=== PATIENT | male | born 1955 | race Caucasian/White ===

== ENCOUNTER 2020-04-30 23:21 | Inpatient (IN) | payer MEDICARE, OTHER ==
[~2020-04-30] VITALS: Ht 182.9 cm; Wt 61.2 kg
[2020-05-01] MEDS ORDERED: MAGNESIUM HYDROXIDE 30 ML UDC PO PRN
[2020-05-01] MEDS ORDERED: MAG HYDROX/AL HYDROX/SIMETH 30 ML UDC PO PRN
[2020-05-01] MEDS ORDERED: ACETAMINOPHEN 325 MG TABLET PO PRN
[2020-05-01] MEDS ORDERED: BLOOD SUGAR DIAGNOSTIC 1 EACH STRIP IN ONE
[2020-05-01] MEDS ORDERED: LORAZEPAM 0.5 MG TABLET PO PRN (00:30)
[2020-05-01] MEDS ORDERED: TEMAZEPAM 7.5 MG CAPSULE PO PRN (00:30)
--- NOTE | 2020-05-01 01:23 | NUR ---
GPS RN ADMITTING NOTE: ADMITTED A 65 Y/O MALE ON 04/30/2020 @ 2330. PT IS A DIRECT ADMIT FROM [facility] ORIGINALLY FROM HOME. PT ARRIVED UNIT ON A STRETCHER ACCOMPANIED BY 2 EMT STAFF. PT IS ON A 5150 HOLD FOR GRAVELY DISABLED. PT WAS PLACED ON HOLD ON 04/30/2020 @ 1400, HOLD WILL ON 05/03/2020 @ 1400. PER HOLD, PT WAS TAKEN TO [facility] BY HIS SON, REPORTING PATIENT HAS BEEN DEPRESSED, CATATONIC, AND NOT EATING NOR GROOMING HIMSELF. PT ALSO ADMITTED TO MD HE HAS NOT BEEN EATING OR GROOMING HIMSELF AND IS LOSING WEIGHT. UPON FACE TO FACE EVALUATION, PT PRESENTS A/O X3, COOPERATIVE, CALM, OBEYS COMMAND. PT SKIN ASSESSMENT DONE AND PICTURES TAKEN AND PLACED IN PATIENT CHART. ACCU CHEK DONE/BS 86MG/DL. MRSA DONE. PT BELONGINGS INVENTORIED AND CONTRABAND PLACED IN SAFE. PT UNABLE TO SIGN ADMISSION PAPERS. PT DENIES SI AT THIS TIME. PT MEDICAL HX IS COPD AND GLAUCOMA. PT WILL BE UNDER THE MEDICAL CARE OF SAM AND PSYCHIATRIC CARE OF DR DOMINGO. BOTH DOCTORS HAVE BEEN INFORMED OF PT ADMISSION. PT ADVISED OF HIS HOLD. PT ORIENTED TO UNIT, STAFF AND DOCTORS. PTS RIGHTS HANDBOOK AND PRESCRIPTION MEDICATION GUIDE GIVEN TO PT. PT BED IS IN LOCKED, LOWEST POSITION, BED ALARM IS ON. CARE PLAN STARTED, ALL PT CARE NEEDS HAVE BEEN MET AT THIS TIME. PT IS CURRENTLY LAYING ON BED. NO S/S OF DISTRESS. WILL CONTINUE TO MONITOR Q15MIN AND Q1 HR ROUNDS FOR SAFETY MOOD AND BEHAVIOR AND ENDORSE TO AM SHIFT.
[2020-05-01 01:44] VITALS: BP 109/66
[2020-05-01] MEDS ORDERED: FLUC200T PO (02:20)
[2020-05-01] MEDS ORDERED: ALBU18HF2 INH (02:20)
[2020-05-01 06:55] LABS: BILIRUBIN,TOTAL 0.3 mg/dL (0.2-1.0); CREATININE 0.9 mg/dL (0.6-1.3); TOTAL PROTEIN, SERUM 6.6 g/dL (6.4-8.2)
--- NOTE | 2020-05-01 07:00 | NUR ---
GPS RN CLOSING NOTES: PT SLEEPING COMFORTABLY IN BED. NO BEHAVIORAL ISSUES THIS SHIFT. PT SLEPT FOR 6HR THIS SHIFT. NO S/S OF DISTRESS. RESPIRATION EVEN AND UNLABORED WITH EQUAL RISE AND FALL OF THE CHEST ON ROOM AIR. ALL PT CARE NEEDS MET ANTICIPATED. WILL CONTINUE TO MONITOR AND ENDORSE TO AM SHIFT.
[2020-05-01 07:05] LABS: CHOLESTEROL 256 mg/dL (<200); HDL CHOLESTEROL 49 mg/dL (40-60); LDL 150 mg/dL (0-99); TRIGLYCERIDES 242 mg/dL (30-150)
[2020-05-01] MEDS ORDERED: NETA2.5D3 RIGHTEYE (07:43)
[2020-05-01] MEDS ORDERED: BRIN8DRO RIGHTEYE (07:43)
[2020-05-01] MEDS ORDERED: FLUT1BLS IH (07:43)
[2020-05-01 08:00] VITALS: BP 111/69
--- NOTE | 2020-05-01 10:30 | NUR ---
FAMILY CONTACT: SW spoke with pt's brother Poncho Hernandes ([phone]) to inform him of pt's treatment plan and initial discharge plan. SW confirmed pt can return home when stable and cleared for discharge and transportation will be provided by pt's brother Poncho. Poncho stated intent to provide social support and ADL support to ensure pt meets treatment objectives. Per pt treatment plan, SW offered [facility] contact information for pt to follow up post discharge from facility; paperwork left with pt at bedside. SW to remain available and continue to monitor pt's progress.
--- NOTE | 2020-05-01 12:23 | NUR ---
INITIAL DISCHARGE PLAN: Pt currently resides at [address] [place] [address]; [phone]. Pt reports he is uncertain if he can return home due to strained relationship with brother Poncho ([phone]); VENITA spoke with pt's brother Poncho who confirmed pt can return home when cleared for discharge; Poncho confirmed he will stay with pt to ensure pt safety and follow up compliance. Poncho further reported that he can provide transportation for pt to return home when cleared for discharge. Pt reports he is agreeable to initial discharge plan. VENITA will work with MD, pt and family to form a safe discharge plan.
--- NOTE | 2020-05-01 14:20 | NUR ---
GROUP THERAPY: SW encouraged pt to attend group on this day, pt was asleep and not easily roused by verbal cues.
[2020-05-01] MEDS: FLUOXETINE HCL 20 MG CAPSULE PO SCH (14:52)
--- NOTE | 2020-05-01 15:35 | NUR ---
GPS RN NOTE: DR PEREZ NOTIFIED TO RECONCILED HOME MEDICATIONS.
[2020-05-01 16:00] VITALS: BP 149/84
[2020-05-01] MEDS ORDERED: ALBUTEROL FS 2.5 MG/3 ML VIAL.NEB NEB PRN (18:00)
[2020-05-01 20:00] VITALS: BP 99/52
--- NOTE | 2020-05-01 20:58 | NUR ---
GPS RN NOTE NOTICED PTS BP WAS LOW, RECHECKED PTS VITALS, VITALS ARE NOW STABLE, BP: 122/62, O2: 99, HR: 68, RR: 19. WILL CONTINUE TO MONITOR Q15MIN FOR SAFETY AND BEHAVIOR.
[2020-05-01] MEDS ORDERED: OLANZAPINE 2.5 MG TABLET PO SCH (21:00)
[2020-05-01 21:01] VITALS: BP 122/64
[2020-05-01] MEDS: LATANOPROST EYE DROP 0.005% 2.5 ML BOTTLE OP SCH (21:20)
[2020-05-01] MEDS ORDERED: Medication Not On Formulary EA (Netarsudil Mesylat/Latanoprost (Rocklatan 0.02%-0.005% E RIGHTEYE SCH (22:00)
[2020-05-02 08:00] VITALS: BP 112/64
[2020-05-02] MEDS: ENSURE ENLIVE CHOC 237 ML CAN PO SCH ×2 (08:33→17:07)
[2020-05-02] MEDS: FLUTICASONE/VILANTEROL 1 EACH BLST.W.DEV IH SCH (08:34)
[2020-05-02] MEDS: FLUOXETINE HCL 20 MG CAPSULE PO SCH (12:11)
[2020-05-02 16:00] VITALS: BP 129/69
[2020-05-02 19:56] VITALS: BP 116/54
[2020-05-02] MEDS ORDERED: OLANZAPINE 2.5 MG TABLET PO SCH (21:00)
[2020-05-02] MEDS: LATANOPROST EYE DROP 0.005% 2.5 ML BOTTLE OP SCH (21:39)
[2020-05-02] MEDS ORDERED: SIMVASTATIN 10 MG TABLET ONE (22:11)
[2020-05-02] MEDS: SIMVASTATIN 10 MG TABLET PO SCH (22:13)
[2020-05-03 08:00] VITALS: BP 111/63
[2020-05-03] MEDS: ENSURE ENLIVE CHOC 237 ML CAN PO SCH ×2 (08:09→16:53)
[2020-05-03] MEDS: FLUTICASONE/VILANTEROL 1 EACH BLST.W.DEV IH SCH (08:38)
--- NOTE | 2020-05-03 09:00 | NUR ---
RN NOTE- PT QUIET WITHDRAWN IN BED, MINIMAL INTERACTION, MED COMPLIANT PARANOID GUARDED, DENIES ALL.
--- NOTE | 2020-05-03 12:09 | NUR ---
GROUP THERAPY: SW encouraged pt to attend group on this day, pt was asleep in the activity room and not easily roused by verbal cues.
[2020-05-03] MEDS: FLUOXETINE HCL 20 MG CAPSULE PO SCH (12:11)
[2020-05-03] MEDS: Fluoxetine 10 mg capsule PO SCH (13:00)
[2020-05-03] MEDS ORDERED: FLUOXETINE HCL 20 MG CAPSULE PO SCH (13:00)
--- NOTE | 2020-05-03 13:18 | NUR ---
RN NOTE- DR DOMINGO INCREASED PTS PROZAC DOSE FROM 20MG TO 30 MG. ORDER CAME UP FOR PROZAC 30 MG AT 1300 BUT PROZAC 20 MG 1300 DOSE ALREADY GIVEN BY THIS RN. DR DOMINGO ORDERED NEW 30 MG PROZAC DOSE HELD AND A ONE TIME DOSE OF PROZAC 10 MG TO BE GIVEN AT THIS TIME. COMPLIED
[2020-05-03] MEDS ORDERED: Fluoxetine 10 mg capsule PO SCH (13:30)
[2020-05-03 16:07] VITALS: BP 115/64
[2020-05-03 19:37] VITALS: BP 115/74
[2020-05-03 19:44] VITALS: BP 115/74
--- NOTE | 2020-05-03 20:15 | NUR ---
GPS RN NOTE PATIENT TOOK SHOWER TONIGHT.
[2020-05-03] MEDS: OLANZAPINE 2.5 MG TABLET PO SCH (21:10)
[2020-05-03] MEDS: LATANOPROST EYE DROP 0.005% 2.5 ML BOTTLE OP SCH (21:11)
[2020-05-03] MEDS: SIMVASTATIN 10 MG TABLET PO SCH (21:47)
--- NOTE | 2020-05-04 06:57 | NUR ---
GPS RN NOTE PATIENT SLEPT WELL AT NIGHT, QUIET, ISOLATIVE, GUARDED, NO BEHAVIORAL EPISODES NOTED. REDIRECTABLE.
[2020-05-04 08:05] VITALS: BP 116/62
[2020-05-04] MEDS: ENSURE ENLIVE CHOC 237 ML CAN PO SCH ×2 (08:26→16:48)
[2020-05-04] MEDS: FLUTICASONE/VILANTEROL 1 EACH BLST.W.DEV IH SCH (09:50)
[2020-05-04] MEDS: Fluoxetine 10 mg capsule PO SCH (13:47)
[2020-05-04 16:19] VITALS: BP 120/67
--- NOTE | 2020-05-04 16:43 | NUR ---
very isolative,sits by self in rm.
[2020-05-04 20:07] VITALS: BP 129/65
[2020-05-04] MEDS: OLANZAPINE 2.5 MG TABLET PO SCH (21:09)
[2020-05-04] MEDS: SIMVASTATIN 10 MG TABLET PO SCH (21:09)
[2020-05-04] MEDS: LATANOPROST EYE DROP 0.005% 2.5 ML BOTTLE OP SCH (21:09)
--- NOTE | 2020-05-05 07:04 | NUR ---
weight training instructor notes closing notes pt remain in bed resting without any distress noted. he slept well and calmed and cooperative last night till end of the shift. kept him warm and comfortable at all times. will continue Q 15 minutes monitoring for safety and behavior. Endorse to am nurse Lilibeth/rn for continuity of care.
[2020-05-05 08:00] VITALS: BP 119/77
[2020-05-05] MEDS: ENSURE ENLIVE CHOC 237 ML CAN PO SCH ×2 (08:36→16:32)
[2020-05-05] MEDS: FLUTICASONE/VILANTEROL 1 EACH BLST.W.DEV IH SCH (08:37)
--- NOTE | 2020-05-05 09:00 | NUR ---
RN NOTE- PT IN ROOM WITHDRAWN, ISOLATIVE, PARANOID, GUARDED, MONOSYLLABIC RESPONSES, CONFUSED, PO INTAKE GOOD MED COMPLIANT
[2020-05-05] MEDS: Fluoxetine 10 mg capsule PO SCH (12:11)
[2020-05-05 16:00] VITALS: BP 124/65
--- NOTE | 2020-05-05 19:50 | NUR ---
GPS RN OPENING NOTES PATIENT RECEIVED RESTING IN BED COMFORTABLY; A/O2-3, BREATHING EVEN AND UNLABORED; NO SOB NOTED; TOLERATING ROOM AIR; AMBULATORY WITH STEADY GAIT; PATIENT DENIES SI/HI AT THIS TIME; NO DISTRESS NOTED; PATIENT EDUCATED ON USE OF CALL LIGHT; SAFETY PRECAUTIONS IMPLEMENTED; BED LOCKED IN LOW POSITION; SIDE RAILSX2; WILL CONTINUE TO MONITOR [id number] WITH THE HELP OF STAFF TO MAINTAIN SAFETY
[2020-05-05 20:00] VITALS: BP 123/54
[2020-05-05] MEDS ORDERED: SIMVASTATIN 10 MG TABLET ONE (21:36)
[2020-05-05] MEDS: OLANZAPINE 2.5 MG TABLET PO SCH (21:40)
[2020-05-05] MEDS: LATANOPROST EYE DROP 0.005% 2.5 ML BOTTLE OP SCH (21:40)
[2020-05-05] MEDS: SIMVASTATIN 10 MG TABLET PO SCH (21:40)
[2020-05-06 08:00] VITALS: BP 121/75
[2020-05-06] MEDS: FLUTICASONE/VILANTEROL 1 EACH BLST.W.DEV IH SCH (08:39)
[2020-05-06] MEDS: ENSURE ENLIVE CHOC 237 ML CAN PO SCH ×2 (08:39→17:09)
--- NOTE | 2020-05-06 09:00 | NUR ---
RN NOTE- UNCHANGED TODAY PT IN ROOM WITHDRAWN, ISOLATIVE, PARANOID, GUARDED, MONOSYLLABIC RESPONSES, CONFUSED, PO INTAKE GOOD MED COMPLIANT
[2020-05-06] MEDS: Fluoxetine 10 mg capsule PO SCH (12:09)
[2020-05-06 16:00] VITALS: BP 120/65
--- NOTE | 2020-05-06 16:00 | NUR ---
RN NOTE- PT WALKED TOWARDS DOOR AND TRIED TO EXIT. REDIRECTED. DR DOMINGO AWARE OF HIS CONFUSION AND ORDERED LABS AND UA COLLECTED. COMPLYING
[2020-05-06 17:49] LABS: APPEARANCE,URINE CLEAR (CLEAR); BILIRUBIN,URINE NEGATIVE (NEGATIVE); BLOOD, URINE NEGATIVE Ery/uL (NEGATIVE); COLOR,URINE YELLOW (YELLOW); KETONES,URINE TRACE (NEGATIVE); LEUKOCYTE ESTERASE ,URINE NEGATIVE (NEGATIVE); NITRITE, URINE NEGATIVE (NEGATIVE); PH,URINE 5.5 (5.0-8.0); PROTEIN,URINE NEGATIVE (NEGATIVE); UGLUCOSE NEGATIVE (NEGATIVE); UROBILINOGEN,URINE 0.2 EU/dL (0.2)
[2020-05-06 17:50] LABS: ALBUMIN 3.4 g/dL (3.4-5.0); BILIRUBIN,TOTAL 0.4 mg/dL (0.2-1.0); CREATININE 0.8 mg/dL (0.6-1.3); POTASSIUM 4.2 mmol/L (3.5-5.1); TOTAL PROTEIN, SERUM 7.3 g/dL (6.4-8.2)
[2020-05-06 17:57] LABS: BACTERIA,URINE None seen /HPF (None Seen); RBC,URINE NONE SEEN /HPF (0-2); SQUAMOUS EPITHELIAL CELL,UR None Seen /HPF (None Seen); WBC,URINE 0-2 /HPF (0-3)
[2020-05-06 19:48] VITALS: BP 141/81
[2020-05-06 19:50] VITALS: BP 141/81
[2020-05-06 20:08] VITALS: BP 141/81
[2020-05-06] MEDS: SIMVASTATIN 10 MG TABLET PO SCH (21:08)
[2020-05-06] MEDS: LATANOPROST EYE DROP 0.005% 2.5 ML BOTTLE OP SCH (21:08)
[2020-05-06] MEDS: OLANZAPINE 2.5 MG TABLET PO SCH (21:08)
--- NOTE | 2020-05-06 23:57 | NUR ---
RECEIVED AMBULATING IN HIS ROOM HEAD DOWN AND EYE GLASSES ON. WHEN I ENTERED THE ROOM HE LOOKED AT ME BUT NO ACKNOWLEDGEMENT HAVING A FLAT AFFECT. HE SAID 'NO' TO A SLEEPING PILL. HE TOOK HIS OTHER MEDS W/O PROBLEMS .HE REMAINS SITTING ON THE EDGE OF THE BED AWAKE , BLANKET WAS GIVEN AND WRAPPED AROUND HIS SHOULDERS SOCKS ARE ON HIS FEET FLAT AFFECT CONTINUES
--- NOTE | 2020-05-07 05:50 | NUR ---
ENDING NOTES: AT 02:00 HE CAME OUT TO SIT IN A CHAIR OUTSIDE HIS ROOM.HE WAS DOING WORD FIND PUZZELSS. I WALKED BY HIM AND HE SAYS"HEY HAVE YOU ED TO [place] ?" AND PRCEEDED TO TALK ABOUT THE PEOPLE IN [place], HE SPOKE OF HIS ADVENTURE ON A [employer] BOARD AND THE ADVENTURE IN [place] BUYING A CAR, HE WAS SMILING HE SPOKE. HE LATER IN THE MORNING WANTED TO SHAVE AND GET CLEANED UP. HE WAS PLEASENT AND COOPERATIVE.
[2020-05-07 07:18] LABS: BASOPHILS # (AUTO) 0.1 /CMM (0.0-0.2); BASOPHILS % (AUTO) 0.9 % (0.0-2.0); EOSINOPHILS % (AUTO) 4.1 % (0.0-6.0); HEMATOCRIT 40 % (39-51); HEMOGLOBIN 13.3 g/dL (13.5-17.5); LYMPHOCYTES # (AUTO) 1.4 /CMM (0.8-4.8); LYMPHOCYTES % (AUTO) 21.8 % (20.0-44.0); MEAN CORPUSCULAR HGB CONC 34 g/dl (31.0-36.0); MEAN CORPUSCULAR VOLUME 92 fL (80-96); MONOCYTES # (AUTO) 0.9 /CMM (0.1-1.30); MONOCYTES % (AUTO) 13.3 % (2.0-12.0); NEUTROPHILS # (AUTO) 3.8 /CMM (1.8-8.9); NEUTROPHILS % (AUTO) 59.9 % (43.0-81.0); PLATELET COUNT (AUTO) 282 /CMM (150-450); RED BLOOD CELL COUNT(AUTO) 4.28 MIL/uL (4.5-6.0); WHITE BLOOD COUNT (AUTO) 6.4 K/uL (4.3-11.0)
[2020-05-07 08:00] VITALS: BP 115/74
[2020-05-07] MEDS: FLUTICASONE/VILANTEROL 1 EACH BLST.W.DEV IH SCH (08:50)
[2020-05-07] MEDS: ENSURE ENLIVE CHOC 237 ML CAN PO SCH ×2 (08:50→16:29)
--- NOTE | 2020-05-07 09:00 | NUR ---
RN NOTE- CONFUSED TODAY PT IN ROOM WITHDRAWN, ISOLATIVE, PARANOID, GUARDED, MONOSYLLABIC RESPONSES, CONFUSED, PO INTAKE GOOD MED COMPLIANT
--- NOTE | 2020-05-07 11:05 | NUR ---
Individual Intervention with the pt and the MD: SW met with the pt with the MD at bedside and informed the pt that the recommendation post pts hospital stay is to be discharged to a SNF. Pts affect was flat and pt was not making eye contact but appeared to nod his head in approval of the discharge plan.
--- NOTE | 2020-05-07 11:11 | NUR ---
SNF Referral: VENITA faxed a referral to [facility] with attention to Alison to the fax number: [phone].
--- NOTE | 2020-05-07 11:16 | NUR ---
Family Contact: SW spoke with pt's brother Poncho Hernandes ([phone]) and informed him that the pts MD is recommending the pt to be discharged to a SNF for further stabilization post pts hospital stay. Pts brother stated that he understands and would like to see more improvement from the pt before he can return home. Pts brother agreed to the SNF placement.
[2020-05-07] MEDS: Fluoxetine 10 mg capsule PO SCH (12:16)
[2020-05-07 16:00] VITALS: BP 129/83
[2020-05-07 20:02] VITALS: BP 142/64
[2020-05-07] MEDS: LATANOPROST EYE DROP 0.005% 2.5 ML BOTTLE OP SCH (21:15)
[2020-05-07] MEDS: OLANZAPINE 2.5 MG TABLET PO SCH (21:16)
[2020-05-07] MEDS: SIMVASTATIN 10 MG TABLET PO SCH (21:16)
[2020-05-08 08:00] VITALS: BP 114/70
[2020-05-08] MEDS: ENSURE ENLIVE CHOC 237 ML CAN PO SCH ×2 (09:43→17:23)
[2020-05-08] MEDS: FLUTICASONE/VILANTEROL 1 EACH BLST.W.DEV IH SCH (09:43)
--- NOTE | 2020-05-08 10:13 | NUR ---
GIVEN TYLENOL 650 MG PO FOR HEADACHE.
--- NOTE | 2020-05-08 10:40 | NUR ---
SNF Contact: Meghna ([phone]) from [facility] SN[facility] contacted the SW and stated that the pt was accepted to their facility upon discharge.
--- NOTE | 2020-05-08 10:41 | NUR ---
SNF Contact: Alison ([phone]) from [facility] contacted the SW and stated that the pt was accepted to their facility once the diagnosis includes cognitive impairment.
--- NOTE | 2020-05-08 11:30 | NUR ---
discussed ct results with reyes fierro np and orders given.
[2020-05-08] MEDS: Fluoxetine 10 mg capsule PO SCH (12:53)
--- NOTE | 2020-05-08 13:21 | NUR ---
spoke with furniture inspector and dr. li regarding mri orders.call out to pt's brother dustin.ok'd mri for pt.
[2020-05-08 16:00] VITALS: BP 108/52
--- NOTE | 2020-05-08 16:56 | NUR ---
MRI CHECKLIST COMPLETE.PT. A LITTLE CONFUSED,FORGETFUL.
[2020-05-08 20:00] VITALS: BP 120/54
--- NOTE | 2020-05-08 20:35 | NUR ---
GPS RN NOTE SPOKE TO SALESPERSON BURIAL PLOTS SHITAL @ 2031, REGARDING THE PTS MRI, SHITAL SAID THAT THE MRI WILL BE DONE TOMORROW AND IT WAS NOT NEEDED TO START THE HEPLOCK TODAY. PT WAS ADVISED OF THE CHANGE. WILL PASS IT ON AND CONTINUE TO MONITOR Q15MIN FOR SAFETY AND BEHAVIOR.
[2020-05-08] MEDS: LATANOPROST EYE DROP 0.005% 2.5 ML BOTTLE OP SCH (21:25)
[2020-05-08] MEDS: OLANZAPINE 2.5 MG TABLET PO SCH (21:25)
[2020-05-08] MEDS: MEMANTINE HCL 5 MG TABLET PO SCH (21:25)
[2020-05-08] MEDS: SIMVASTATIN 10 MG TABLET PO SCH (21:29)
--- NOTE | 2020-05-09 06:47 | NUR ---
GPS RN NOTE SPOKE TO RADIOLOGIST RAT BREEDER DARLIN @ 9930, REGARDING PTS MRI SCHEDULED TODAY, DARLIN STATED HE DID NOT RECEIVE THE ORDER PLACED LAST NIGHT AND TO D/C THE ORDER AND CREATE A NEW ONE. DARLIN STATED HE WANTED THE ORDER TO BE AN MRI ORBIT OF HEAD AND NECK, SINUSES W/ AND W/OUT CONTRAST. NEW ORDER WAS PUT IN, WILL PASS IT ON TO DAY SHIFT TO FOLLOW UP WITH DARLIN REGARDING STATUS OF ORDER. CONSENT AND PAPERWORK ARE DONE AND PLACED IN CHART, PT IS AWARE OF THE PROCEDURE. WILL CONTINUE TO MONITOR Q15MIN FOR SAFETY AND BEHAVIOR.
[2020-05-09 08:00] VITALS: BP 126/75
[2020-05-09] MEDS: ENSURE ENLIVE CHOC 237 ML CAN PO SCH ×2 (08:15→16:30)
[2020-05-09] MEDS: MEMANTINE HCL 5 MG TABLET PO SCH ×2 (08:16→21:04)
[2020-05-09] MEDS: FLUTICASONE/VILANTEROL 1 EACH BLST.W.DEV IH SCH (08:16)
[2020-05-09] MEDS: CYANOCOBALAMIN 1,000 MCG/ML VIAL IM SCH (08:56)
--- NOTE | 2020-05-09 09:34 | NUR ---
Hep lock started with gauge #20 on the right arm. Pt. good blood return and pt. tolerated well.
--- NOTE | 2020-05-09 09:45 | NUR ---
Pt. went to MRI with the staff. Left without distress and on stable condition.
[2020-05-09] MEDS: Fluoxetine 10 mg capsule PO SCH (12:13)
--- NOTE | 2020-05-09 15:28 | NUR ---
Rhys COPELAND came in the unit examined the nose of the pt. Addendum: 05/09/20 at 1532 by JANIE RAMIRES RN Per FILM RECORDIST he is aware of the MRI result
[2020-05-09 16:00] VITALS: BP 116/70
[2020-05-09 19:47] VITALS: BP 110/52
[2020-05-09 20:14] VITALS: BP 110/52
[2020-05-09] MEDS: OLANZAPINE 2.5 MG TABLET PO SCH (21:04)
[2020-05-09] MEDS: LATANOPROST EYE DROP 0.005% 2.5 ML BOTTLE OP SCH (21:05)
[2020-05-09] MEDS: SIMVASTATIN 10 MG TABLET PO SCH (21:42)
--- NOTE | 2020-05-10 06:03 | NUR ---
GPS RN NOTE PATIENT SLEPT WELL AT NIGHT. COOPERATIVE, CLAM, QUIET, ISOLATIVE, NO BEHAVIOR CHANGES NOTED. WILL CONTINUE TO MONITOR.
[2020-05-10] MEDS: ENSURE ENLIVE CHOC 237 ML CAN PO SCH ×2 (08:00→16:30)
[2020-05-10 08:04] VITALS: BP 113/75
[2020-05-10] MEDS: FLUTICASONE/VILANTEROL 1 EACH BLST.W.DEV IH SCH (08:44)
[2020-05-10] MEDS: MEMANTINE HCL 5 MG TABLET PO SCH ×2 (08:44→21:21)
[2020-05-10] MEDS: CYANOCOBALAMIN 1,000 MCG/ML VIAL IM SCH (08:45)
[2020-05-10] MEDS: Fluoxetine 10 mg capsule PO SCH (12:39)
[2020-05-10] MEDS ORDERED: Fluoxetine 10 mg capsule PO ONE (13:00)
[2020-05-10] MEDS ORDERED: Fluoxetine 10 mg capsule PO SCH (13:00)
[2020-05-10 13:21] LABS: BASOPHILS # (AUTO) 0.1 /CMM (0.0-0.2); BASOPHILS % (AUTO) 0.9 % (0.0-2.0); EOSINOPHILS % (AUTO) 2.9 % (0.0-6.0); HEMATOCRIT 39 % (39-51); HEMOGLOBIN 13.2 g/dL (13.5-17.5); LYMPHOCYTES # (AUTO) 1.9 /CMM (0.8-4.8); LYMPHOCYTES % (AUTO) 25.4 % (20.0-44.0); MEAN CORPUSCULAR HGB CONC 34 g/dl (31.0-36.0); MEAN CORPUSCULAR VOLUME 93 fL (80-96); MONOCYTES % (AUTO) 13.6 % (2.0-12.0); NEUTROPHILS # (AUTO) 4.3 /CMM (1.8-8.9); NEUTROPHILS % (AUTO) 57.2 % (43.0-81.0); PLATELET COUNT (AUTO) 312 /CMM (150-450); WHITE BLOOD COUNT (AUTO) 7.5 K/uL (4.3-11.0)
[2020-05-10 13:30] LABS: ALBUMIN 2.6 g/dL (3.4-5.0); BILIRUBIN,TOTAL 0.3 mg/dL (0.2-1.0); CALCIUM, SERUM 8.7 mg/dL (8.5-10.1); CREATININE 0.9 mg/dL (0.6-1.3); POTASSIUM 4.1 mmol/L (3.5-5.1); TOTAL PROTEIN, SERUM 6.1 g/dL (6.4-8.2)
[2020-05-10 16:00] VITALS: BP 126/64
[2020-05-10 19:49] VITALS: BP 117/62
[2020-05-10 19:53] VITALS: BP 117/62
--- NOTE | 2020-05-10 20:30 | NUR ---
GPS RN NOTE: URINE SPECIMEN WAS COLLECTED ORDERED & PICKED UP BY GOLD LETTERER.
[2020-05-10 21:08] LABS: APPEARANCE,URINE CLEAR (CLEAR); BILIRUBIN,URINE NEGATIVE (NEGATIVE); BLOOD, URINE NEGATIVE Ery/uL (NEGATIVE); COLOR,URINE YELLOW (YELLOW); KETONES,URINE NEGATIVE (NEGATIVE); LEUKOCYTE ESTERASE ,URINE NEGATIVE (NEGATIVE); NITRITE, URINE NEGATIVE (NEGATIVE); PROTEIN,URINE NEGATIVE (NEGATIVE); UGLUCOSE NEGATIVE (NEGATIVE); UROBILINOGEN,URINE 0.2 EU/dL (0.2)
[2020-05-10] MEDS: LATANOPROST EYE DROP 0.005% 2.5 ML BOTTLE OP SCH (21:21)
[2020-05-10] MEDS: OLANZAPINE 2.5 MG TABLET PO SCH (21:21)
[2020-05-10] MEDS: SIMVASTATIN 10 MG TABLET PO SCH (21:46)
[2020-05-11 08:00] VITALS: BP 111/62
[2020-05-11] MEDS: FLUTICASONE/VILANTEROL 1 EACH BLST.W.DEV IH SCH (08:58)
[2020-05-11] MEDS: ENSURE ENLIVE CHOC 237 ML CAN PO SCH ×2 (08:58→16:34)
[2020-05-11] MEDS: CYANOCOBALAMIN 1,000 MCG/ML VIAL IM SCH (08:58)
[2020-05-11] MEDS: LATANOPROST EYE DROP 0.005% 2.5 ML BOTTLE OP SCH (08:59)
[2020-05-11] MEDS: MEMANTINE HCL 5 MG TABLET PO SCH ×2 (08:59→21:26)
[2020-05-11] MEDS: FLUOXETINE HCL 20 MG CAPSULE PO SCH (12:10)
[2020-05-11 16:00] VITALS: BP 109/51
[2020-05-11 20:50] VITALS: BP 98/54
[2020-05-11] MEDS: SIMVASTATIN 10 MG TABLET PO SCH (21:26)
[2020-05-11] MEDS: OLANZAPINE 2.5 MG TABLET PO SCH (21:26)
[2020-05-12 08:00] VITALS: BP 121/62
[2020-05-12] MEDS: FLUTICASONE/VILANTEROL 1 EACH BLST.W.DEV IH SCH (08:50)
[2020-05-12] MEDS: ENSURE ENLIVE CHOC 237 ML CAN PO SCH ×2 (08:51→17:12)
[2020-05-12] MEDS: CYANOCOBALAMIN 1,000 MCG/ML VIAL IM SCH (09:01)
[2020-05-12] MEDS: MEMANTINE HCL 5 MG TABLET PO SCH ×2 (09:01→21:27)
[2020-05-12] MEDS: FLUOXETINE HCL 20 MG CAPSULE PO SCH (12:24)
[2020-05-12 16:00] VITALS: BP 111/57
[2020-05-12 20:19] VITALS: BP 117/44
[2020-05-12] MEDS: OLANZAPINE 2.5 MG TABLET PO SCH (21:26)
[2020-05-12] MEDS: SIMVASTATIN 10 MG TABLET PO SCH (21:27)
[2020-05-12] MEDS: LATANOPROST EYE DROP 0.005% 2.5 ML BOTTLE OP SCH (21:39)
[2020-05-13] MEDS: ENSURE ENLIVE CHOC 237 ML CAN PO SCH ×2 (07:38→17:10)
[2020-05-13 08:00] VITALS: BP 117/51
[2020-05-13] MEDS: CYANOCOBALAMIN 1,000 MCG/ML VIAL IM SCH (09:00)
[2020-05-13] MEDS: FLUTICASONE/VILANTEROL 1 EACH BLST.W.DEV IH SCH (09:00)
[2020-05-13] MEDS: MEMANTINE HCL 5 MG TABLET PO SCH ×2 (09:00→21:04)
--- NOTE | 2020-05-13 09:00 | NUR ---
RN NOTE- PT IN BED QUIET WITHDRAWN ISOLATIVE, POOR EYE CONTACT, ANSWERS QUERY WITH MINIMAL PARTICIPATION, DENIES SI HI AH VH, FLAT DEPRESSED MED COMPLIANT, PO INTAKE FAIR
[2020-05-13] MEDS: FLUOXETINE HCL 20 MG CAPSULE PO SCH (12:21)
[2020-05-13] MEDS: Fluoxetine 10 mg capsule PO SCH (13:36)
[2020-05-13 16:00] VITALS: BP 114/55
[2020-05-13 19:59] VITALS: BP 102/51
[2020-05-13] MEDS: OLANZAPINE 2.5 MG TABLET PO SCH (21:04)
[2020-05-13] MEDS: SIMVASTATIN 10 MG TABLET PO SCH (21:29)
[2020-05-13] MEDS: LATANOPROST EYE DROP 0.005% 2.5 ML BOTTLE OP SCH (21:29)
[2020-05-14] MEDS: ENSURE ENLIVE CHOC 237 ML CAN PO SCH (07:23)
[2020-05-14 08:00] VITALS: BP 107/49
--- NOTE | 2020-05-14 08:04 | NUR ---
Discharge Note: Patient [facility] [address] [facility] [address] ([phone]). Patient will be provided with ambulance transportation today at 12pm. Spoke with te Coffman at the facility area coordinator who state they are ready to accept the patient today. Patients brother Poncho ([phone]) is aware of discharge. Patient is aware and agreeable with discharge plans and presents with appropriate mood and congruent affect. Patient is alert and oriented x2-3, is unable to plan for self-care, however, is willing to received care provided for him at [facility]. Patient denies any suicidal or homicidal ideation. Patient will follow-up at the facility with (Psychiatrist) Dr. Wallace and (Lapper) Dr. Perzaa. Patient presented with euthymic mood and congruent affect.
[2020-05-14] MEDS: FLUTICASONE/VILANTEROL 1 EACH BLST.W.DEV IH SCH (08:34)
[2020-05-14] MEDS: CYANOCOBALAMIN 1,000 MCG/ML VIAL IM SCH (08:34)
[2020-05-14] MEDS: MEMANTINE HCL 5 MG TABLET PO SCH (08:34)
--- NOTE | 2020-05-14 09:00 | NUR ---
RN NOTE- QUIET WITHDRAWN ISOLATIVE, POOR EYE CONTACT, ANSWERS QUERY WITH MINIMAL PARTICIPATION, DENIES SI HI AH VH, FLAT DEPRESSED MED COMPLIANT, PO INTAKE FAIR
[2020-05-14] MEDS: Fluoxetine 10 mg capsule PO SCH (12:24)
--- NOTE | 2020-05-14 16:12 | NUR ---
RN DC NOTE- PT DC AT THIS TIME TO [facility] VIA AMBULANCE. VS STABLE, REPORT SENT TO SNF TO [facility]. COVID NEG AND MRSA NEG LAB RESULTS FAXED TO FACILITY. PT ALERT ORIENTED TO PERSON PLACE. CONFUSED AT TIMES . PT DENIES SI HI AH VH. FLAT AFFECT WITHDRAWN AND ISOLATIVE. NO SKIN WOUNDS PRESENT. NO PHOTOS REQUIRED. VALUABLES RETURNED TO PT. REFUSED FLU SHOT AND PNA SHOT. WASN'T SURE LAST ADMINISTRATION THOUGH THINKS IT WAS LAST YEAR. ESCORTED OFF UNIT BY AMBULANCE STAFF AND THIS RN
== END 2020-05-14 16:51 | DRG 885 ==
LOC: GPS 23:21
PROVIDERS: ADMIT Psychiatry & Neurology Psychosomatic Medicine; ATTEND Student in an Organized Health Care Education/Training Program
DX: F32.3 Major depressive disorder, single episode, severe with psychotic features (principal); E43 Unspecified severe protein-calorie malnutrition; N17.0 Acute kidney failure with tubular necrosis; Z68.1 Body mass index [BMI] 19.9 or less, adult; F29 Unspecified psychosis not due to a substance or known physiological condition; F41.9 Anxiety disorder, unspecified; R41.89 Other symptoms and signs involving cognitive functions and awareness; E78.5 Hyperlipidemia, unspecified; H40.9 Unspecified glaucoma; J44.9 Chronic obstructive pulmonary disease, unspecified; Z73.6 Limitation of activities due to disability; I67.2 Cerebral atherosclerosis; J34.89 Other specified disorders of nose and nasal sinuses; Z82.5 Family history of asthma and other chronic lower respiratory diseases; G62.9 Polyneuropathy, unspecified
CPT/HCPCS: 36415; 70450-TC; 70542-TC; 80053-TC; 80061-TC; 81000-TC; 82962-TC; 84443-TC; 85025-TC; 87081-TC; 87086-TC; J3420